=== PATIENT | female | born 1945 | race Caucasian/White ===

== ENCOUNTER → 2020-03-30 | Outpatient (CLI) | payer MEDICARE | LOC: EXRD 13:59 | DX: M15.8 Other polyosteoarthritis (principal); M85.852 Other specified disorders of bone density and structure, left thigh | CPT/HCPCS: 77080 ==

== ENCOUNTER → 2021-05-20 | Outpatient (CLI) | payer MEDICARE | LOC: LAB 14:54 | DX: E03.9 Hypothyroidism, unspecified (principal) | CPT/HCPCS: 36415; 84439; 84443 ==

== ENCOUNTER 2021-09-01 07:45 | Inpatient (IN) | payer MEDICARE ==
[~2021-09-01] VITALS: Ht 172.7 cm; Wt 100.0 kg
[2021-09-01 09:17] LABS: HEMOGLOBIN 16.1 gm/dl (12.3-15.3); RED BLOOD COUNT 5.11 M/UL (4.00-5.10); WHITE BLOOD COUNT 15.9 K/UL (4.5-11.0)
[2021-09-01 13:58] LABS: BUN/CREATININE RATIO 25 (0-10)
[2021-09-01] MEDS ORDERED: TRAMADOL HCL50 MG PO (15:04)
[2021-09-01] MEDS ORDERED: FUROSEMIDE20 MG PO (15:05)
[2021-09-01] MEDS ORDERED: ISOSORBIDE MONO30 MG PO (15:05)
[2021-09-01] MEDS ORDERED: PROTONIX40 MG PO (15:06)
[2021-09-01] MEDS ORDERED: LEVOTHYROXINE125 MCG PO (15:06)
[2021-09-01] MEDS ORDERED: HYDROXYCHLOROQ200 MG PO (15:07)
[2021-09-01] MEDS ORDERED: ZETIA10 MG PO (15:08)
[2021-09-01] MEDS ORDERED: LISINOPRIL10 MG PO (15:08)
[2021-09-01] MEDS ORDERED: BACLOFEN10 MG PO (15:08)
[2021-09-01] MEDS ORDERED: [UNRECOGNIZED DRUG - OTHER] PO (15:10)
[2021-09-01] MEDS ORDERED: CALAN PO (15:10)
[2021-09-02 05:40] LABS: RED BLOOD COUNT 3.63 M/UL (4.00-5.10); WHITE BLOOD COUNT 23.1 K/UL (4.5-11.0)
[2021-09-02 09:09] LABS: BORDETELLA PARAPERTUSSIS Not Detected (Not Detectd); BORDETELLA PERTUSSIS Not Detected (Not Detectd); CHLAMYDIA PNEUMONIAE Not Detected (Not Detectd); CORONAVIRUS HKU1 Not Detected (Not Detectd); CORONAVIRUS NL63 Not Detected (Not Detectd); CORONAVIRUS OC43 Not Detected (Not Detectd); CORONOAVIRUS 229E Not Detected (Not Detectd); HUMAN METAPNEUMOVIRUS Not Detected (Not Detectd); HUMAN RHINOVIRUS/ENTEROVIRUS Not Detected (Not Detectd); INFLUENZA A Not Detected (Not Detectd); INFLUENZA B Not Detected (Not Detectd); MYCOPLASMA PNEUMONIAE Not Detected (Not Detectd); PARAINFLUENZA VIRUS 1 Not Detected (Not Detectd); PARAINFLUENZA VIRUS 2 Not Detected (Not Detectd); PARAINFLUENZA VIRUS 3 Not Detected (Not Detectd); PARAINFLUENZA VIRUS 4 Not Detected (Not Detectd); RESPIRATORY SYNCYTIAL VIRUS Not Detected (Not Detectd)
[2021-09-02 12:22] LABS: SARS-CoV-2 NOT DETECTED (Not Detectd)
[2021-09-03 04:12] LABS: HEMOGLOBIN 10.8 gm/dl (12.3-15.3); RED BLOOD COUNT 3.65 M/UL (4.00-5.10); WHITE BLOOD COUNT 20.7 K/UL (4.5-11.0)
[2021-09-04 04:10] LABS: HEMOGLOBIN 11.5 gm/dl (12.3-15.3); RED BLOOD COUNT 3.93 M/UL (4.00-5.10); WHITE BLOOD COUNT 25.7 K/UL (4.5-11.0)
--- NOTE | 2021-09-04 14:19 | NUR ---
VERIFIED PLACEMENT OF DOBHOFF BY DR. BISWAS.
[2021-09-04 16:15] LABS: ORGANISM ID Not indicated. (.); SPECIMEN SOURCE Urine (.); STREPTOCOCCUS PNEUMONIAE AG Negative (Negative)
--- NOTE | 2021-09-04 20:14 | NUR ---
ASSESSMENT COMPLETED CHARTED. LABORED BREATHING NOTED . BIPAP APPLIED . WILL CONTINUE TO MONITOR.
[2021-09-05 03:21] LABS: HEMOGLOBIN 11.2 gm/dl (12.3-15.3); RED BLOOD COUNT 3.82 M/UL (4.00-5.10)
--- NOTE | 2021-09-05 12:45 | NUR ---
CALL MADE TO DR. ALMEIDA ABOUT POSSIBLE TEMPORARY DIALYSIS CATHETER TOMORROW MORNING.
[2021-09-06 01:10] LABS: HEMOGLOBIN 11.6 gm/dl (12.3-15.3); RED BLOOD COUNT 3.91 M/UL (4.00-5.10)
[2021-09-06 04:58] LABS: HEMOGLOBIN 12.6 gm/dl (12.3-15.3); RED BLOOD COUNT 4.29 M/UL (4.00-5.10); WHITE BLOOD COUNT 23.7 K/UL (4.5-11.0)
[2021-09-06 12:11] LABS: % CD 4 POS. LYMPH. 34.5 % (30.8-58.5); ABSOLUTE CD 4 HELPER 104 /uL (359-1519); BASO (ABSOLUTE) 0.1 x10E3/uL (0.0-0.2); BASOS 0 % (Not Estab.); EOS 0 % (Not Estab.); EOS (ABSOLUTE) 0.1 x10E3/uL (0.0-0.4); HEMATOCRIT 32.8 % (34.0-46.6); HEMATOLOGY COMMENTS: Note: (.); HEMOGLOBIN 11.1 g/dL (11.1-15.9); IMMATURE GRANS (ABS) 0.2 x10E3/uL (0.0-0.1); IMMATURE GRANULOCYTES 1 % (Not Estab.); LYMPHS 1 % (Not Estab.); LYMPHS (ABSOLUTE) 0.3 x10E3/uL (0.7-3.1); MCH 30.2 pg (26.6-33.0); MCHC 33.8 g/dL (31.5-35.7); MCV 89 fL (79-97); MONOCYTES 1 % (Not Estab.); MONOCYTES(ABSOLUTE) 0.2 x10E3/uL (0.1-0.9); NEUTROPHILS 97 % (Not Estab.); NEUTROPHILS (ABSOLUTE) 19.6 x10E3/uL (1.4-7.0); PLATELETS 269 x10E3/uL (150-450); RBC 3.68 x10E6/uL (3.77-5.28); RDW 15.2 % (11.7-15.4); WBC 20.4 x10E3/uL (3.4-10.8)
[2021-09-06 13:11] LABS: HIV AB/P24 AG SCREEN Non Reactive (Non Reactive)
[2021-09-06 14:11] LABS: HBSAG SCREEN Negative (Negative); HCV AB 0.2 (0.0-0.9); HEP A AB, IGM Negative (Negative); HEP B CORE AB, IGM Negative (Negative)
[2021-09-07 13:09] LABS: ANTI-CENTROMERE B ANTIBODIES <0.2 AI (0.0-0.9); ANTI-DNA (DS) AB QN <1 IU/mL (0-9); ANTI-JO-1 <0.2 AI (0.0-0.9); ANTICHROMATIN ANTIBODIES <0.2 AI (0.0-0.9); ANTIRIBOSOMAL P ANTIBODIES <0.2 AI (0.0-0.9); ANTISCLERODERMA-70 ANTIBODIES <0.2 AI (0.0-0.9); RNP ANTIBODIES <0.2 AI (0.0-0.9); SJOGREN'S ANTI-SS-A 1.6 AI (0.0-0.9); SJOGREN'S ANTI-SS-B <0.2 AI (0.0-0.9); SMITH ANTIBODIES <0.2 AI (0.0-0.9); SMITH/RNP ANTIBODIES <0.2 AI (0.0-0.9)
[2021-09-07 15:09] LABS: ATYPICAL PANCA <1:20 titer (Neg:<1:20); CYTOPLASMIC (C-ANCA) <1:20 titer (Neg:<1:20); PERINUCLEAR (P-ANCA) <1:20 titer (Neg:<1:20)
[2021-09-08 15:10] LABS: ORGANISM ID Not indicated. (.); SPECIMEN SOURCE Urine (.); STREPTOCOCCUS PNEUMONIAE AG Negative (Negative)
== END 2021-09-06 20:41 | disposition short-term general hospital (02) | DRG 871 ==
LOC: ER1 07:45 → CDU 14:15 → CCU 19:55
PROVIDERS: Emergency Medicine; Internal Medicine Nephrology; Internal Medicine Pulmonary Disease; Physician Assistant Medical; ADMIT Internal Medicine
PROC: 3E033XZ Introduction of Vasopressor into Peripheral Vein, Percutaneous Approach (ICD-10-PCS; principal; 2021-09-01)
PROC: 3E03329 Introduction of Other Anti-infective into Peripheral Vein, Percutaneous Approach (ICD-10-PCS; 2021-09-01)
PROC: 5A09557 Assistance with Respiratory Ventilation, Greater than 96 Consecutive Hours, Continuous Positive Airway Pressure (ICD-10-PCS; 2021-09-01)
PROC: 02HV33Z Insertion of Infusion Device into Superior Vena Cava, Percutaneous Approach (ICD-10-PCS; 2021-09-01)
PROC: B548ZZA Ultrasonography of Superior Vena Cava, Guidance (ICD-10-PCS; 2021-09-01)
PROC: B24BZZZ Ultrasonography of Heart with Aorta (ICD-10-PCS; 2021-09-02)
PROC: 0BH17EZ Insertion of Endotracheal Airway into Trachea, Via Natural or Artificial Opening (ICD-10-PCS; 2021-09-06)
PROC: 5A1935Z Respiratory Ventilation, Less than 24 Consecutive Hours (ICD-10-PCS; 2021-09-06)
PROC: 03HY32Z Insertion of Monitoring Device into Upper Artery, Percutaneous Approach (ICD-10-PCS; 2021-09-06)
PROC: 5A1D70Z Performance of Urinary Filtration, Intermittent, Less than 6 Hours Per Day (ICD-10-PCS; 2021-09-06)
DX: A41.9 Sepsis, unspecified organism (principal); G93.41 Metabolic encephalopathy; I21.4 Non-ST elevation (NSTEMI) myocardial infarction; Z20.822 Contact with and (suspected) exposure to COVID-19; J18.9 Pneumonia, unspecified organism; J96.01 Acute respiratory failure with hypoxia; R65.21 Severe sepsis with septic shock; N17.0 Acute kidney failure with tubular necrosis; K72.00 Acute and subacute hepatic failure without coma; M62.82 Rhabdomyolysis; E87.1 Hypo-osmolality and hyponatremia; E03.9 Hypothyroidism, unspecified; M47.896 Other spondylosis, lumbar region; D50.9 Iron deficiency anemia, unspecified; M06.9 Rheumatoid arthritis, unspecified; G89.29 Other chronic pain; I12.9 Hypertensive chronic kidney disease with stage 1 through stage 4 chronic kidney disease, or unspecified chronic kidney disease; N18.9 Chronic kidney disease, unspecified; M54.9 Dorsalgia, unspecified; K21.9 Gastro-esophageal reflux disease without esophagitis; I48.0 Paroxysmal atrial fibrillation; E87.6 Hypokalemia; R74.01 Elevation of levels of liver transaminase levels; R13.10 Dysphagia, unspecified; Z79.01 Long term (current) use of anticoagulants; Z85.3 Personal history of malignant neoplasm of breast; Z98.42 Cataract extraction status, left eye; Z98.41 Cataract extraction status, right eye; Z98.890 Other specified postprocedural states; Z88.8 Allergy status to other drugs, medicaments and biological substances; Z79.82 Long term (current) use of aspirin; Z82.49 Family history of ischemic heart disease and other diseases of the circulatory system; Z83.3 Family history of diabetes mellitus; Z90.710 Acquired absence of both cervix and uterus
CPT/HCPCS: ECHO; 31500; 36415; 36556; 36600; 71045; 71250; 72148; 74018; 76705; 80048; 80053; 80074; 80202; 81001; 82150; 82436; 82533; 82550; 82552; 82553; 82803; 82962; 82977; 83036; 83516; 83605; 83615; 83625; 83690; 83735; 83874; 83880; 83935; 84100; 84133; 84300; 84439; 84443; 84484; 84550; 85025; 85027; 85610; 85652; 85730; 86140; 86256; 86361; 87040; 87081; 87086; 87278; 87389; 87633; 87899; 89050; 90935; 93005; 93306; 93970; 94002; 94660; 94760; 96365; 96366; 96367; 96375; 99285; C9113; J0456; J0692; J0696; J1120; J1170; J1644; J1650; J1885; J2185; J2250; J2270; J2370; J2543; J2704; J2930; J3370; J3411; J7030; J7040; J7050; J7070; P9047; U0002